=== PATIENT | female | born 1940 | race Caucasian/White ===

== ENCOUNTER → 2021-01-09 | Outpatient (CLI) | payer OTHER ==
[~2021-01-09] MED LIST: ALPRAZOLAM0.5 MG PO; ASPIR 8181 MG PO; CEFTIN250 MG PO; DOC-Q-LACE100 MG PO; FLAGYL500 MG PO; K-DUR TAB 10 M10 MEQ PO; LACTINEX PACKET1 PKT PO; LEVAQUIN500 MG PO; LORTAB 10-3251 EACH PO; MILK OF MAGNESI30 ML PO; MS CONTIN15 MG PO; NEURONTIN 300300 MG PO; OMEPRAZOLE40 MG PO; PRAVACHOL20 MG PO; SYNTHROID75 MCG PO; TRIBENZOR 40-11 EAC1 PO; ZOFRAN ODT4 MG PO
== END ==
LOC: MRI 13:01
DX: F03.90 Unspecified dementia, unspecified severity, without behavioral disturbance, psychotic disturbance, mood disturbance, and anxiety (principal)
CPT/HCPCS: 70551